=== PATIENT | male | born 1990 | race African-American/Black ===

== ENCOUNTER 2016-09-11 18:59 | Emergency (ER) | payer OTHER ==
[~2016-09-11] VITALS: Ht 175.3 cm; Wt 68.0 kg
[2016-09-11 19:00] VITALS: BP 164/84; PULSE 60; RESP 16; TEMP 98; O2SAT 98
--- NOTE | 2016-09-11 19:25 | PD ---
HPI Chief Complaint: Complaint Time Seen by Provider: 19:15 Travel History International Travel<30 days: No Contact w/Intl Traveler<30days: No Traveled to known affect area: No History of Present Illness HPI This is a 26-year-old male with no significant past medical history. He presents for evaluation of dysuria and urethral discharge. For the past 3 days he has had a slight burning sensation at the end of his urination. He has noted a small amount of clear urethral discharge as well. He denies any abdominal pain, fevers or chills, nausea or vomiting, flank pain, skin lesions. He is sexually active with 2 partners. He has no other complaints at this time. PFSH Past Medical History Medical History: Denies Significant Hx Tetanus Vaccination: Unknown Influenza Vaccination: No Past Surgical History Surgical History: No Previous Surgery Social History Alcohol Use: Yes (RARE) Tobacco Use: No Substance Use: No Allergies-Medications (Allergen,Severity, Reaction): Coded Allergies: No Known Allergies (Unverified , 09/11/16) Reported Meds & Prescriptions Reported Meds & Active Scripts Active No Active Prescriptions or Reported Medications Review of Systems Except as stated in HPI: all other systems reviewed are Neg Physical Exam Narrative GENERAL: Well-developed well-nourished male in no acute distress SKIN: Warm and dry. GASTROINTESTINAL: Abdomen soft, non-tender, nondistended. : There is no urethral discharge. There is no scrotal or testicular tenderness to palpation Data Data Last Documented VS Vital Signs Date Time Temp Pulse Resp B/P Pulse Ox O2 Delivery O2 Flow Rate FiO2 09/11/16 19:00 98.0 60 16 164/84 98 Orders Gc And Chlamydia Pcr (09/11/16 19:21) Azithromycin Powd Pack (Zithromax Powd P (09/11/16 19:30) Ceftriaxone Inj (Rocephin Inj) (09/11/16 19:30) Sodium Chloride 0.9% Flush (Ns Flush) (09/11/16 19:30) Lidocaine 1% Inj (50 Ml) (Xylocaine 1% I (09/11/16 19:30) MDM Medical Decision Making Medical Screen Exam Complete: Yes Emergency Medical Condition: Yes Medical Record Reviewed: Yes Differential Diagnosis Urethritischemical versus gonococcal versus nongonococcal, cystitis Narrative Course This is a 26-year-old male who is sexually active who presents with 3 days of slight urethral discharge and dysuria. Physical examination is benign. His symptoms and history are certainly concerning for urethritis and therefore GC and chlamydia probes have been sent and are pending. The patient will be treated empirically pending results. Recommended having his partners tested and treated at the health department and also recommended outpatient follow-up at the health department or through his primary care physician for routine STD screening. Diagnosis Primary Impression: Urethritis Referrals: [facility]. Additional Instructions: As discussed, practice barrier contraception. Have partners tested and treated at health department or through primary care physician prior to engaging in sexual contact. Follow-up at the health department or primary care physician for routine STD testing and screening. Return for any emergent medical conditions. Med/Other Pt SpecificInfo: No Change to Meds Scripts No Active Prescriptions or Reported Meds Disposition: 01 DISCHARGE HOME Condition: Stable Lisandro Rios Sep 11, 2016 19:25
[2016-09-11] MEDS ORDERED: AZITHROMYCIN PWD FOR SUSP 1 GM PACKET PO ONE (19:30)
[2016-09-11] MEDS ORDERED: cefTRIAXone 250 MG VIAL IM ONE (19:30)
[2016-09-11] MEDS ORDERED: SODIUM CHLORIDE 0.9% FLUSH 5 ML FLUSH IVF PRN (19:30)
[2016-09-11] MEDS ORDERED: LIDOCAINE HCL 1% 50 ML VIAL XX ONE (19:30)
[2016-09-11 22:59] LABS: CHLAMYDIA PCR NOT DETECTED (NOT DETECT); NEISSERIA PCR NOT DETECTED (NOT DETECT)
== END 2016-09-11 20:05 | disposition home or self-care (01) ==
LOC: NEPB 18:59
DX: N34.2 Other urethritis (principal)
CPT/HCPCS: 87491; 87591; 96372; 99283; J0696